=== PATIENT | female | born 1975 | race Caucasian/White ===

== ENCOUNTER 2016-10-16 01:36 | Emergency (ER) | payer BC ==
[~2016-10-16] VITALS: Ht 170.2 cm; Wt 104.3 kg
[~2016-10-16 01:36] MED LIST: ACET-2650 PO; BIOT10TA PO; BSP5T PO; CHOL10003 PO; CHOL2000 PO; CYCL10TA9 PO; CYMBALTA; DULO20CA PO; ESCI20TA2 PO; FLUO40CA12 PO; Flexeril; HYDR1TAB PO; IRON1TAB95 PO; LORA1TAB; METFORMIN; MULT-301 PO; NAPR500T2 PO; OMG1KC PO; ONDA8TAB9 PO; PROP20TA5 PO; QTP25T PO; QUET150T PO; SERT50TA PO; SITA1TAB6 PO; SPIR25TA3 PO; SULF1TAB38 PO; TRAM50TA2 PO; VALE500C PO; VITA1200 SL; VNL75T PO
--- NOTE | 2016-10-16 01:51 | ED EENT ---
History of Present Illness General Stated Complaint: F O IN THROAT Source: patient, RN notes reviewed Exam Limitations: no limitations History of Present Illness Time seen by provider: 01:48 Initial Comments As above and below. Was eating chicken earlier this evening and choked. Since that time she has felt like she has a bone stuck in her throat. Is able to drink water s/ difficulty. Timing/Duration: abrupt Severity: severe (03/07) Location: throat Prearrival Treatment: no prearrival treatment Modifying Factors: Improves With Other (see above) Associated Symptoms: denies symptoms, No drooling Allergies and Home Medications Allergies Coded Allergies: No Known Drug Allergies (Unverified , 12/04/15) Home Medications Acetaminophen 650 Mg Tablet.er, 650 MG PO BID, (Reported) Biotin 10 Mg Tablet, 10 MG PO DAILY, (Reported) Cholecalciferol (Vitamin D3) 1,000 Unit Tablet, 1,000 UNIT PO DAILY, (Reported) Iron,Carbonyl/Vit C/Vit B12/FA 1 Each Tablet, 1 EACH PO DAILY, (Reported) Multivitamin 1 Each Tablet, 1 EACH PO DAILY, (Reported) [place] 3 Polyunsat Fatty Acids 1,000 Mg Cap, 1,000 MG PO DAILY, (Reported) Ondansetron 8 Mg Tab.rapdis, 8 MG PO Q6H PRN for NAUSEA/VOMITING, #10 Prescribed by: RYLAND MORGAN on 12/16/15 1752 Propranolol HCl 20 Mg Tablet, 20 MG PO PRN PRN for ANXIETY, (Reported) Sucralfate 1 Gm/10 Ml Oral.susp, 1 GM PO Q6H PRN for THROAT PAIN for 5 Days, Ref 0 Prescribed by: JUAN C GARDUNO on 10/16/16 0348 Valerian Root 500 Mg Capsule, 500 MG PO HS, (Reported) Review of Systems Constitutional: see HPI Throat: see HPI, pain, painful swallowing Respiratory: No short of breath, No stridor Gastrointestinal: see HPI, No nausea, No vomiting : No All Other Systems Reviewed Negative Unless Noted: Yes (Negative excepted noted.) Past Xlpkuck-Juavzj-Qzgqwk Hx Patient Social History Recent Foreign Travel: No Contact w/Someone Who Travel: No Seasonal Allergies Seasonal Allergies: Yes Surgeries HX Surgeries: Yes (KNEE SCOPE) Surgeries: 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 Respiratory Hx Respiratory Disorders: No Cardiovascular Hx Cardiac Disorders: No Cardiac Disorders: Hypertension Neurological Hx Neurological Disorders: No Reproductive System Hx Reproductive Disorders: No (HYSTERECTOMY) Sexually Transmitted Disease: No HIV/AIDS: 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 Genitourinary Hx Genitourinary Disorders: No Gastrointestinal Hx Gastrointestinal Disorders: No Musculoskeletal Hx Musculoskeletal Disorders: Yes Musculoskeletal Disorders: Chronic Back Pain Endocrine Hx Endocrine Disorders: Yes (OBESITY) Endocrine Disorders: Diabetes, Non-Insulin dep HEENT HX ENT Disorders: No (GLASSES) Loss of Vision: Bilateral Hearing Impairment: Denies Cancer Hx Cancer: No Psychosocial Hx Psychiatric Problems: Yes Behavioral Health Disorders: Anxiety, Depression Integumentary HX Skin/Integumentary Disorder: Yes (LIPOMA LT UPPER ARM, LESION RT UPPER ARM) Blood Transfusions Hx Blood Disorders: No Adverse Reaction to a Blood Tr: No (N/A) Physical Exam Vital Signs Vital Sign - Last 12Hours 10/16/16 01:42 Temp 97.4 Pulse 68 Resp 20 B/P (MAP) 108/90 Pulse Ox 97 O2 Delivery Room Air General Appearance: WD/WN, mild distress, obese, other (anxious) Mouth/Throat: pharynx normal, No excessive drooling Neck: supple, normal inspection Cardiovascular: regular rate, rhythm Respiratory: no respiratory distress Gastrointestinal: soft, other (obese) Neurologic/Psychiatric: no motor/sensory deficits, alert, oriented x 3 Skin: warm/dry Progress/Results/Core Measures Results/Orders My Orders Orders - JUAN C GARDUNO DO Ct Neck (Soft Tissue) Wo (10/16/16 01:51) Lidocaine 2% Viscous 15 Ml (Xylocaine Vi (10/16/16 03:45) Antacid Suspension (Mylanta Suspension (10/16/16 03:45) Ketorolac Injection (Toradol Injection) (10/16/16 04:00) Dexamethasone Pf Injection (Decadron Pf (10/16/16 04:00) Vital Signs/I&O Vital Sign - Last 12Hours 10/16/16 01:42 Temp 97.4 Pulse 68 Resp 20 B/P (MAP) 108/90 Pulse Ox 97 O2 Delivery Room Air Diagnostic Imaging Diagonstic Imaging: CT Plain Films/CT/US/NM/MRI: other (soft tissue neck was negative of any obvious foreign body) Departure Impression Impression: Primary Impression: Esophageal abrasion Disposition: 01 HOME, SELF-CARE Condition: Stable Departure-Patient Inst. Decision time for Depature: 03:44 Referrals: MINGO SWENSON DO (PCP/Family) Primary Care Physician Patient Instructions: Acid Reflux (Gastroesophageal Reflux Disease), Adult (DC) Scripts Sucralfate (Carafate) 1 Gm/10 Ml Oral.susp 1 GM PO Q6H Y for THROAT PAIN for 5 Days, ML 0 Refills Prov: JUAN C GARDUNO DO 10/16/16 JUAN C GARDUNO DO Oct 16, 2016 01:51
[2016-10-16] MEDS ORDERED: ANTACID SUSP 30 ML UDC (MYLANTA) PO ONE (03:45)
[2016-10-16] MEDS ORDERED: LIDOCAINE 2% VISCOUS 15 ML UDC PO ONE (03:45)
[2016-10-16] MEDS ORDERED: SUCR1ORA5 PO (03:48)
[2016-10-16 03:54] VITALS: BP 117/80
[2016-10-16] MEDS ORDERED: DEXAMETHASONE PF 10 MG/ML (DECADRON) VIAL IV ONE (04:00)
[2016-10-16] MEDS ORDERED: KETOROLAC 30 MG/ML VIAL IVP ONE (04:00)
--- NOTE | 2016-10-16 07:19 | Diagnostic Imaging Report ---
PROCEDURE: CT neck soft tissue without contrast. TECHNIQUE: Multiple contiguous axial images were obtained through the neck without the use of intravenous contrast. INDICATION: Choking sensation. Patient is feeling that there is something stuck in the throat. FINDINGS: The mucosal pharyngeal space demonstrates symmetric vocal cords and symmetric mucosa in the pharynx with no radiopaque foreign body identified. There is no lymphadenopathy in the cervical chain on either side. There is symmetric appearance of the parotid and the submandibular glands. The visualized portions of the paranasal sinuses appear generally clear. Degenerative changes in the mid and lower cervical spine are noted. IMPRESSION: No radiopaque foreign body seen. No fluid collection, abscess or lymphadenopathy noted. Dictated by: Dictated on workstation # [id number]
== END 2016-10-16 03:54 | disposition home or self-care (01) ==
LOC: EDUNIT# 01:36 → ER 01:38
DX: S27.818A Other injury of esophagus (thoracic part), initial encounter (principal); I10 Essential (primary) hypertension; E11.9 Type 2 diabetes mellitus without complications; E66.9 Obesity, unspecified; W45.8XXA Other foreign body or object entering through skin, initial encounter; Z79.899 Other long term (current) drug therapy; Y92.009 Unspecified place in unspecified non-institutional (private) residence as the place of occurrence of the external cause; Y99.8 Other external cause status
CPT/HCPCS: 70490; 99282

== ENCOUNTER → 2017-03-08 | Outpatient (CLI) | payer BC ==
[~2017-03-08] MED LIST changes: +SUCR1ORA5 PO
--- NOTE | 2017-03-08 13:20 | Diagnostic Imaging Report ---
Bilateral diagnostic mammogram with tomography evaluation. CAD is utilized. INDICATION Lump in the upper outer aspect of the left breast. COMPARISON: 10/05/2013. FINDINGS: The palpable area is marked at the outer upper aspect of the left breast with no underlying lesion seen. There is background scattered fibroglandular densities seen. On tomography evaluation in the CC projection lateral to the central aspect of the left breast there is a 6-mm asymmetry with suggestion of architectural distortion. This is not confirmed on the MLO projection however. The finding is seen on slice 54 of 82 in the tomographic CC projection views. The right breast demonstrates no evidence of malignancy. IMPRESSION: Indeterminate 6-mm asymmetry with question of architectural distortion only seen on tomography views in the left CC projection lateral to the central aspect of the left breast, tomography image 54/82. Ultrasound evaluation pending. ACR BI-RADS Category 0: Incomplete. (Needs additional imaging evaluation). Result letter will be mailed to the patient. Note: At least 10% of breast cancer is not imaged by mammography. Report was called/stat faxed to office of Dr. Kiera Sandhu @ 1:19 PM/livier. Dictated by: Dictated on workstation # [id number]
--- NOTE | 2017-03-08 13:43 | Diagnostic Imaging Report ---
Left breast ultrasound. INDICATION: Left breast lump. Asymmetry along the outer aspect of the left breast. FINDINGS: The four quadrants and retroareolar region of the left breast were scanned with no underlying abnormality seen. IMPRESSION: Negative study. The asymmetry seen only on the tomography view in the left CC projection is indeterminate. Further evaluation with MRI could be considered. Otherwise a six month followup left breast mammogram is recommended. ACR BI-RADS Category 0: Incomplete. (Needs additional imaging evaluation). Result letter will be mailed to the patient. Note: At least 10% of breast cancer is not imaged by mammography. Dictated by: Dictated on workstation # [id number]
== END ==
LOC: RAD 12:32
PROVIDERS: ATTEND Obstetrics & Gynecology
DX: N63 Unspecified lump in breast (principal)
CPT/HCPCS: 76641; 77066

== ENCOUNTER → 2017-08-30 | Outpatient (CLI) | payer BC ==
[~2017-08-30] MED LIST changes: +NAPR-1073 PO; -NAPR500T2 PO
--- NOTE | 2017-08-30 16:07 | Diagnostic Imaging Report ---
INDICATION: Six-month followup of left breast density. Correlation is made with prior study from 03/08/2017 and 01/31/2016. The current study was also evaluated with a Computer Aided Detection (CAD) system. 3-D CC, ML and MLO views of the left breast were obtained. The area of questionable density and architectural distortion in the outer portion of the left breast on the CC view at mid depth appears stable. No corresponding abnormality on the MLO or ML view is seen. No suspicious calcifications are identified. The axilla is unremarkable. Impression: BI-RADS category 3 Stable left mammogram. Patient should return in 6 months for additional followup to confirm stability. ACR BI-RADS Category 3: Probably benign findings. Result letter will be mailed to the patient. Note: At least 10% of breast cancer is not imaged by mammography. Dictated by: Dictated on workstation # [id number]
== END ==
LOC: RAD 13:58
PROVIDERS: ATTEND Obstetrics & Gynecology
DX: R92.8 Other abnormal and inconclusive findings on diagnostic imaging of breast (principal)

== ENCOUNTER 2018-02-11 09:07 | Emergency (ER) | payer BC ==
[~2018-02-11] VITALS: Ht 170.2 cm; Wt 99.8 kg
--- NOTE | 2018-02-11 09:35 | ED General ---
General Chief Complaint: General Problems/Pain Stated Complaint: REACTION TO MEDICATION Nursing Triage Note: PT AMB TO ROOM #5 W/O DIFFICULTY. A&OX4. CO OF NEW MEDICATION REACTION. PT REPORTS DR. SWENSON PRESCRIBED AMITRIPTYLINE FOR DIFFICULTY SLEEPING. PT TOOK 100MG OF MEDICATION LAST NOC APPROX. 1930 AND WOKE UP THIS MORNING FEELING "LOOPY, DISORIENTED, AND UNABLE TO THINK CLEARLY." DENIES ITCHING, HIVES, CHEST PAIN, OR SOA. Nursing Sepsis Screen: No Definite Risk Source of Information: Patient Exam Limitations: No Limitations History of Present Illness Date Seen by Provider: Feb 11, 2018 Time Seen by Provider: 09:20 Initial Comments Patient presents c/ c/o not feeling right. Basically feels hung over. Started on Amitriptyline last PM for insomnia. Took 100 mg. Previously on Ambien for a week but it didn't help. Timing/Duration: Other (upon waking up this AM.) Severity: Moderate Modifying Factors: improves with Other (none) Associated Systoms: Denies Symptoms Allergies and Home Medications Allergies Coded Allergies: No Known Drug Allergies (Unverified , 12/04/15) Home Medications Acetaminophen 650 Mg Tablet.er, 650 MG PO BID, (Reported) Biotin 10 Mg Tablet, 10 MG PO DAILY, (Reported) Cholecalciferol (Vitamin D3) 1,000 Unit Tablet, 1,000 UNIT PO DAILY, (Reported) Iron,Carbonyl/Vit C/Vit B12/FA 1 Each Tablet, 1 EACH PO DAILY, (Reported) Multivitamin 1 Each Tablet, 1 EACH PO DAILY, (Reported) [place] 3 Polyunsat Fatty Acids 1,000 Mg Cap, 1,000 MG PO DAILY, (Reported) Ondansetron 8 Mg Tab.rapdis, 8 MG PO Q6H PRN for NAUSEA/VOMITING Prescribed by: RYLAND MORGAN on 12/16/15 8592 Propranolol HCl 20 Mg Tablet, 20 MG PO PRN PRN for ANXIETY, (Reported) Sucralfate 1 Gm/10 Ml Oral.susp, 1 GM PO Q6H PRN for THROAT PAIN Prescribed by: JUAN C GARDUNO on 10/16/16 0348 Valerian Root 500 Mg Capsule, 500 MG PO HS, (Reported) Patient Home Medication List Home Medication List Reviewed: Yes Review of Systems Constitutional: see HPI, malaise EENTM: No blurred vision, No double vision, No throat pain Respiratory: No short of breath, No stridor Cardiovascular: No edema, No palpitations, No syncope Gastrointestinal: No diarrhea, No nausea Genitourinary: No hematuria, No pain : No Psychiatric/Neurological: See HPI; Denies Paresthesia, Denies Seizure, Denies Tingling Hematologic/Lymphatic: See HPI; Denies Anemia, Denies Blood Clots, Denies Other Immunological/Allergic: denies see HPI, denies transplant All Other Systems Reviewed Negative Unless Noted: Yes (Negative excepted noted.) Past Hpytpex-Czssfl-Dfpvrm Hx Patient Social History Alcohol Use: Denies Use Recreational Drug Use: No Smoking Status: Never a Smoker 2nd Hand Smoke Exposure: No Recent Foreign Travel: No Contact w/Someone Who Travel: No Recent Infectious Disease Expo: No Recent Hopitalizations: No Physical Abuse: No Sexual Abuse: No Seasonal Allergies Seasonal Allergies: Yes Past Medical History Surgeries: Yes (KNEE SCOPE) 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, Tonsillectomy Respiratory: No Cardiac: No Hypertension Neurological: No Reproductive Disorders: No (HYSTERECTOMY) 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 Sexually Transmitted Disease: No HIV/AIDS: No Gastrointestinal: No Musculoskeletal: Yes Chronic Back Pain Endocrine: Yes (OBESITY) Diabetes, Non-Insulin dep Loss of Vision: Bilateral Hearing Impairment: Denies Cancer: No Psychosocial: Yes Anxiety, Depression Nursing Suicide Risk Score: 0 Integumentary: Yes (LIPOMA LT UPPER ARM, LESION RT UPPER ARM) Blood Disorders: No Adverse Reaction/Blood Tranf: No (N/A) Physical Exam Vital Signs Vital Signs - First Documented 02/11/18 09:07 Temp 98.2 Pulse 96 Resp 16 B/P (MAP) 136/96 (109) Pulse Ox 100 O2 Delivery Room Air Capillary Refill : Less Than 3 Seconds Height, Weight, BMI Height: 5'7.00" Weight: 220lbs. 0.0oz. 99.064988me; 39.77 BMI Method:Stated General Appearance: No Apparent Distress, WD/WN Eyes: Bilateral Eye PERRL HEENT: Normal ENT Inspection Respiratory: No Respiratory Distress Cardiovascular: Regular Rate, Rhythm Rectal: Deferred Neurologic/Psychiatric: Alert, Oriented x3, No Motor/Sensory Deficits, Depressed Affect Skin: Warm/Dry Progress/Results/Core Measures Suspected Sepsis Recent Fever Within 48 Hours: No Infection Criteria Present: None New/Unexplained Altered Menta: No Sepsis Screen: No Definite Risk SIRS Temperature:98.2 Pulse: 96 Respiratory Rate: 16 Blood Pressure 136 /96 Mean: 109 Results/Orders Vital Signs/I&O 02/11/18 09:07 Temp 98.2 Pulse 96 Resp 16 B/P (MAP) 136/96 (109) Pulse Ox 100 O2 Delivery Room Air Capillary Refill : Less Than 3 Seconds Blood Pressure Mean: 109 Departure Impression Primary Impression: Medication adverse effect Additional Impression: Insomnia Disposition: 01 HOME, SELF-CARE Condition: Stable Departure-Patient Inst. Decision time for Depature: 09:31 Referrals: MINGO SWENSON DO (PCP/Family) Primary Care Physician Patient Instructions: Adverse Drug Reactions, Adult (DC), Insomnia (DC) Add. Discharge Instructions: Stop the Amitriptyline. All discharge instructions reviewed with patient and/ or family. Voiced understanding. Work/School Note: Work Release Form Date Seen in the Emergency Department: Feb 11, 2018 Return to Work: Feb 11, 2018 Restrictions: No Restrictions JUAN C GARDUNO DO Feb 11, 2018 09:35
[2018-02-11 09:50] VITALS: BP 109/76
== END 2018-02-11 09:54 | disposition home or self-care (01) ==
LOC: EDUNIT# 09:07 → ER 09:09
DX: R41.0 Disorientation, unspecified (principal); T43.015A Adverse effect of tricyclic antidepressants, initial encounter; G47.00 Insomnia, unspecified; I10 Essential (primary) hypertension; E66.9 Obesity, unspecified; E11.9 Type 2 diabetes mellitus without complications; F41.9 Anxiety disorder, unspecified; F32.9 Major depressive disorder, single episode, unspecified; Z68.34 Body mass index [BMI] 34.0-34.9, adult; Z90.710 Acquired absence of both cervix and uterus; Z90.89 Acquired absence of other organs
CPT/HCPCS: 99281

== ENCOUNTER → 2018-03-28 | Outpatient (CLI) | payer BC ==
--- NOTE | 2018-03-28 18:39 | Diagnostic Imaging Report ---
Indication: Six-month followup of left breast density. Correlation is made with prior mammograms from 08/30/2017, 03/08/2017 and 01/31/2016. Bilateral 2-D and 3-D diagnostic mammography was performed with CAD. Findings: Breast again shows moderate parenchymal heterogeneity and increased density, limiting the sensitivity of mammography. The area of slightly increased density in the central left breast on the CC view just lateral to the nipple line appears stable. No discrete mass is seen. No suspicious calcifications are identified. The right breast is unremarkable. Axillae are unremarkable. Impression: BI-RADS 3 Stable bilateral mammograms. Additional six-month followup of the left breast is recommended to show continued stability. ACR BI-RADS Category 3: Probably benign findings. Result letter will be mailed to the patient. Note: At least 10% of breast cancer is not imaged by mammography. Dictated by: Dictated on workstation # [id number]
== END ==
LOC: RAD 13:53
PROVIDERS: ATTEND Nurse Practitioner Family
DX: R92.2 Inconclusive mammogram (principal)
CPT/HCPCS: 77066

== ENCOUNTER → 2018-09-30 | Outpatient (CLI) | payer BC ==
--- NOTE | 2018-09-30 16:55 | Diagnostic Imaging Report ---
INDICATION: Six-month followup left breast density. COMPARISON: Correlation is made with prior mammograms from 03/28/2018, 08/30/2017 as well as 03/08/2017. EXAMINATION: Unilateral left 2D and 3D diagnostic mammography was performed with CAD. The current study was also evaluated with a Computer Aided Detection (CAD) system. FINDINGS: Scattered fibroglandular densities in the left breast are noted. Parenchymal pattern remains stable. Area of density in the central and slightly outer left breast appears stable. No discrete mass or malignant-appearing microcalcifications are seen. The left axilla is unremarkable. IMPRESSION: Stable left mammogram. Patient should return in six months for bilateral screening mammography. ACR BI-RADS Category 1: Negative. Result letter will be mailed to the patient. Note: At least 10% of breast cancer is not imaged by mammography. Dictated on workstation # [id number]
== END ==
LOC: RAD 14:12
PROVIDERS: ATTEND Family Medicine
DX: R92.2 Inconclusive mammogram (principal)

== ENCOUNTER → 2019-03-17 | Outpatient (CLI) | payer BC ==
--- NOTE | 2019-03-17 17:09 | Diagnostic Imaging Report ---
INDICATION: Follow up left breast density. COMPARISON: Correlation is made with prior mammograms dating back to 2013. TECHNIQUE: 2-D and 3-D bilateral diagnostic mammography was performed. The Current study was also evaluated with a Computer Aided Detection (CAD) system. 3-D tomosynthesis was also performed and reviewed. FINDINGS: Scattered fibroglandular densities are identified. Asymmetric density in the central and slightly outer left breast is stable. No discrete mass or malignant-appearing microcalcifications are seen. The axillae are unremarkable. IMPRESSION: No mammographic features suspicious for malignancy are identified. Patient may return to routine annual screening mammography. ACR BI-RADS Category 1: Negative. Result letter will be mailed to the patient. Note: At least 10% of breast cancer is not imaged by mammography. Dictated by: Dictated on workstation # [id number]
== END ==
LOC: RAD 14:00
PROVIDERS: ATTEND Obstetrics & Gynecology
DX: N60.02 Solitary cyst of left breast (principal); Z87.898 Personal history of other specified conditions
CPT/HCPCS: 77066

== ENCOUNTER → 2020-03-11 | Outpatient (CLI) | payer BC ==
[~2020-03-11] MED LIST changes: -TRAM50TA2 PO; +TRM50T PO
--- NOTE | 2020-03-12 12:46 | Diagnostic Imaging Report ---
INDICATION: Routine screening. Comparison is made with prior mammogram 03/17/2019 and 03/28/2018. 2-D and 3-D bilateral screening mammography was performed with CAD. Scattered fibroglandular densities are identified bilaterally. The parenchymal pattern is stable. No mass or malignant appearing microcalcifications are seen. There are benign calcification. The axillae are unremarkable. IMPRESSION: BI-RADS Category 2 No mammographic features suspicious for malignancy are identified. ACR BI-RADS Category 2: Benign findings. Result letter will be mailed to the patient. Note: At least 10% of breast cancer is not imaged by mammography. Dictated by: Dictated on workstation # [id number]
== END ==
LOC: RAD 15:18
PROVIDERS: ATTEND Family Medicine
DX: Z12.31 Encounter for screening mammogram for malignant neoplasm of breast (principal)
CPT/HCPCS: 77063; 77067

== ENCOUNTER → 2021-03-14 | Outpatient (CLI) | payer BC ==
--- NOTE | 2021-03-14 17:18 | Diagnostic Imaging Report ---
INDICATION: Routine screening. COMPARISON: Prior mammogram from 03/11/2020 and 03/17/2019. EXAMINATION: 2D and 3D bilateral screening mammography was performed with CAD. FINDINGS: Scattered fibroglandular densities are identified, bilaterally. The parenchymal pattern is stable. No mass or malignant-appearing microcalcification is seen. Axillae are unremarkable. IMPRESSION: No mammographic feature suspicious for malignancy is identified. ACR BI-RADS Category 1: Negative. Result letter will be mailed to the patient. Note: At least 10% of breast cancer is not imaged by mammography. Dictated on workstation # [id number]
== END ==
LOC: RAD 14:45
PROVIDERS: ATTEND Family Medicine
DX: Z12.31 Encounter for screening mammogram for malignant neoplasm of breast (principal)
CPT/HCPCS: 77063; 77067

== ENCOUNTER 2021-08-23 11:46 | Emergency (ER) | payer BC ==
[~2021-08-23] VITALS: Ht 170 cm; Wt 102.0 kg
[~2021-08-23 11:46] MED LIST changes: +CYCL10TA25 PO; -CYCL10TA9 PO
[2021-08-23] MEDS ORDERED: KETOROLAC 30 MG/ML VIAL IVP ONE (12:00)
[2021-08-23] MEDS ORDERED: ONDANSETRON 4 MG/2 ML (SDV) Z0FRAN IVP ONE (12:00)
--- NOTE | 2021-08-23 12:10 | ED Headache ---
General Chief Complaint: Head/Cervical Problems Stated Complaint: VOMITING/HANDS SHAKING/DIZZY/RIGHT EYE TWITCHING Source: patient Exam Limitations: no limitations History of Present Illness Date Seen by Provider: Aug 23, 2021 Time Seen by Provider: 12:07 Initial Comments To ER with sudden onset of headache sent to ER from [facility] urgent care with report of headache. This was sudden in onset after working out starting at about 930 this morning. From onset to maximum intensity was about 5 minutes. Currently is rated at 6 out of 10. She is tearful on arrival, reports shaking in both of her hands, right eye twitching. No history of this. She is on Cymbalta for anxiety and depression. No head trauma. No fevers or chills. Timing/Duration: 1-3 hours Severity/Quality: moderate Location: global Prior Headaches/Recent Trauma: occasional headaches Associated Symptoms: nausea/vomiting Allergies and Home Medications Allergies Coded Allergies: No Known Drug Allergies (Unverified , 12/04/15) Patient Home Medication List Home Medication List Reviewed: Yes Acetaminophen (Tylenol Arthritis) 650 Mg Tablet.er, 650 MG PO BID, (Reported) Entered as Reported by: LEFTY ELIZONDO on 12/04/15 135 Biotin (Biotin) 10 Mg Tablet, 10 MG PO DAILY, (Reported) Entered as Reported by: LEFTY ELIZONDO on 12/04/15 135 Cholecalciferol (Vitamin D3) (Vitamin D3) 1,000 Unit Tablet, 1,000 UNIT PO DAILY, (Reported) Entered as Reported by: LEFTY ELIZONDO on 12/04/15 135 Iron,Carbonyl/Vit C/Vit B12/FA (Iron 100 Plus Tablet) 1 Each Tablet, 1 EACH PO DAILY, (Reported) Entered as Reported by: LEFTY ELIZONDO on 12/04/15 135 Multivitamin (Multi-Day Vitamins) 1 Each Tablet, 1 EACH PO DAILY, (Reported) Entered as Reported by: LEFTY ELIZONDO on 12/04/15 135 [place] 3 Polyunsat Fatty Acids (Fish Oil 1,000 mg Capsule) 1,000 Mg Cap, 1,000 MG PO DAILY, (Reported) Entered as Reported by: LEFTY ELIZONDO on 12/04/15 135 Ondansetron (Zofran Odt) 8 Mg Tab.rapdis, 8 MG PO Q6H PRN for NAUSEA/VOMITING Prescribed by: RYLAND MORGAN on 12/16/15 1752 Propranolol HCl (Propranolol HCl) 20 Mg Tablet, 20 MG PO PRN PRN for ANXIETY, (Reported) Entered as Reported by: LEFTY ELIZONDO on 12/04/15 1353 Sucralfate (Carafate) 1 Gm/10 Ml Oral.susp, 1 GM PO Q6H PRN for THROAT PAIN Prescribed by: JUAN C GARDUNO on 10/16/16 0348 Valerian Root (Valerian Root) 500 Mg Capsule, 500 MG PO HS, (Reported) Entered as Reported by: LEFTY ELIZONDO on 12/04/15 1353 Review of Systems Review of Systems Constitutional: see HPI Eyes: No Symptoms Reported Ears, Nose, Mouth, Throat: no symptoms reported Respiratory: no symptoms reported Cardiovascular: no symptoms reported Gastrointestinal: nausea, vomiting Genitourinary: no symptoms reported Musculoskeletal: no symptoms reported Skin: no symptoms reported Psychiatric/Neurological: Headache Past Gpfmdzu-Jlqfir-Tdokne Hx Seasonal Allergies Seasonal Allergies: Yes Past Medical History Surgeries: Yes (KNEE SCOPE) 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, Tonsillectomy Respiratory: No Cardiac: No Hypertension Neurological: No Reproductive Disorders: No (HYSTERECTOMY) 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 0.0oz. 99.316264zu; 39.77 BMI Method:Stated General Appearance: WD/WN, no apparent distress, other (Irritable anxious appearing. Ambulatory to room 6 on her own with normal gait. Very pleasant.) HEENT: PERRL/EOMI, normal ENT inspection, TMs normal Neck: non-tender, full range of motion Cardiovascular: regular rate, rhythm, no murmur Respiratory: no respiratory distress, no accessory muscle use Gastrointestinal: normal bowel sounds, non tender, soft Extremities: normal range of motion Psychiatric: alert, oriented x 3 Crainal Nerves: normal hearing, normal speech, PERRL Motor/Sensory: no motor deficit, no sensory deficit Skin: normal color, warm/dry Progress/Results/Core Measures Results/Orders Lab Results Laboratory Tests Test 08/23/21 12:00 08/23/21 12:41 Range/Units White Blood Count 9.1 4.3-11.0 10^3/uL Red Blood Count 4.82 3.80-5.11 10^6/uL Hemoglobin 13.7 11.5-16.0 g/dL Hematocrit 43 35-52 % Mean Corpuscular Volume 89 80-99 fL Mean Corpuscular Hemoglobin 28 25-34 pg Mean Corpuscular Hemoglobin Concent 32 32-36 g/dL Red Cell Distribution Width 13.2 10.0-14.5 % Platelet Count 311 130-400 10^3/uL Mean Platelet Volume 10.5 9.0-12.2 fL Immature Granulocyte % (Auto) 1 % Neutrophils (%) (Auto) 77 H 42-75 % Lymphocytes (%) (Auto) 16 12-44 % Monocytes (%) (Auto) 4 0-12 % Eosinophils (%) (Auto) 2 0-10 % Basophils (%) (Auto) 1 0-10 % Neutrophils # (Auto) 7.0 1.8-7.8 10^3/uL Lymphocytes # (Auto) 1.4 1.0-4.0 10^3/uL Monocytes # (Auto) 0.3 0.0-1.0 10^3/uL Eosinophils # (Auto) 0.2 0.0-0.3 10^3/uL Basophils # (Auto) 0.1 0.0-0.1 10^3/uL Immature Granulocyte # (Auto) 0.1 0.0-0.1 10^3/uL Prothrombin Time 13.8 12.2-14.7 SEC INR Comment 1.0 0.8-1.4 Activated Partial Thromboplast Time 25 24-35 SEC Sodium Level 139 135-145 MMOL/L Potassium Level 3.9 3.6-5.0 MMOL/L Chloride Level 106 98-107 MMOL/L Carbon Dioxide Level 22 21-32 MMOL/L Anion Gap 11 5-14 MMOL/L Blood Urea Nitrogen 15 7-18 MG/DL Creatinine 0.80 0.60-1.30 MG/DL Estimat Glomerular Filtration Rate 91 BUN/Creatinine Ratio 19 Glucose Level 100 70-105 MG/DL Calcium Level 9.5 8.5-10.1 MG/DL Corrected Calcium 9.3 8.5-10.1 MG/DL Total Bilirubin 0.6 0.1-1.0 MG/DL Aspartate Amino Transf (AST/SGOT) 24 5-34 U/L Alanine Aminotransferase (ALT/SGPT) 26 0-55 U/L Alkaline Phosphatase 51 40-136 U/L Total Protein 7.1 6.4-8.2 GM/DL Albumin 4.3 3.2-4.5 GM/DL Urine Color YELLOW Urine Clarity CLEAR Urine pH 6.5 5-9 Urine Specific [place] 1.025 H 1.016-1.022 Urine Protein NEGATIVE NEGATIVE Urine Glucose (UA) NEGATIVE NEGATIVE Urine Ketones 1+ H NEGATIVE Urine Nitrite NEGATIVE NEGATIVE Urine Bilirubin NEGATIVE NEGATIVE Urine Urobilinogen 0.2 < = 1.0 MG/DL Urine Leukocyte Esterase TRACE H NEGATIVE Urine RBC (Auto) NEGATIVE NEGATIVE Urine RBC RARE /HPF Urine WBC NONE /HPF Urine Squamous Epithelial Cells 0-2 /HPF Urine Crystals NONE /LPF Urine Bacteria NEGATIVE /HPF Urine Casts NONE /LPF Urine Mucus NEGATIVE /LPF Urine Culture Indicated NO My Orders Orders - RYLAND MORGAN APRN Cbc With Automated Diff (08/23/21 11:57) Comprehensive Metabolic Panel (08/23/21 11:57) Protime With Inr (08/23/21 11:57) Partial Thromboplastin Time (08/23/21 11:57) Ed Iv/Invasive Line Start (08/23/21 11:57) Ua Culture If Indicated (08/23/21 11:57) Ct Head Wo (08/23/21 11:57) Ondansetron Injection (Zofran Injectio (08/23/21 12:00) Ketorolac Injection (Toradol Injection) (08/23/21 12:00) Medications Given in ED Current Medications Medications Dose Ordered Sig/Cheko Route Start Time Stop Time Status Last Admin Dose Admin Ketorolac Tromethamine 15 mg ONCE ONCE IVP 08/23/21 12:00 08/23/21 12:04 DC 08/23/21 12:18 15 MG Ondansetron HCl 8 mg ONCE ONCE IVP 08/23/21 12:00 08/23/21 12:04 DC 08/23/21 12:18 8 MG Vital Signs/I&O 08/23/21 08/23/21 11:50 13:05 Temp 36.8 Pulse 81 75 Resp 18 18 B/P (MAP) 137/89 (105) 121/84 Pulse Ox 100 100 Departure Communication (Admissions) NAME: [facility] REC#: [id number] PT STATUS: REG ER : 1975 PHYSICIAN: RYLAND MORGAN APRN ADMIT DATE: 08/23/21/ER Draft Date of Exam:08/23/21 CT HEAD WO PROCEDURE: CT head without contrast. TECHNIQUE: Multiple contiguous axial images were obtained through the brain without the use of intravenous contrast. Auto Exposure Controls were utilized during the CT exam to meet ALARA standards for radiation dose reduction. INDICATION: Sudden onset of exertional headache COMPARISON: 07/16/2015 FINDINGS: Mild atrophy. No intracranial hemorrhage. No intracranial mass, mass effect, midline shift, herniation, hydrocephalus, or extra-axial fluid collection. No CT evidence of an acute ischemic infarction. The orbits are unremarkable. The paranasal sinuses are clear. The calvarium and extracalvarial soft tissues are unremarkable. IMPRESSION: No acute intracranial abnormality with mild atrophy present. Dictated on workstation # [id number] Dict: 08/23/21 1217 Trans: 08/23/21 1220 [facility] [id number] Interpreted by: WAYNE ESPARZA MD Electronically signed by: Impression Primary Impression: Headache Qualified Codes: R51.9 - Headache, unspecified Additional Impression: Nausea & vomiting Disposition: 01 HOME, SELF-CARE Condition: Critical Departure-Patient Inst. Decision time for Depature: 12:45 Referrals: MINGO SWENSON DO (PCP/Family) Primary Care Physician Patient Instructions: HEADACHE, Home Treatments for Nausea and Vomiting When You Have Cancer Add. Discharge Instructions: All discharge instructions reviewed with patient and/or family. Voiced understanding. RYLAND MORGAN APRN Aug 23, 2021 12:10
[2021-08-23 12:20] LABS: BASOPHILS # (AUTO) 0.1 10^3/uL (0.0-0.1); BASOPHILS % (AUTO) 1 % (0-10); EOSINOPHILS # (AUTO) 0.2 10^3/uL (0.0-0.3); EOSINOPHILS % (AUTO) 2 % (0-10); HEMATOCRIT 43 % (35-52); HEMOGLOBIN 13.7 g/dL (11.5-16.0); LYMPHOCYTES # (AUTO) 1.4 10^3/uL (1.0-4.0); LYMPHOCYTES % (AUTO) 16 % (12-44); MEAN CORPUSCULAR HEMOGLOBIN 28 pg (25-34); MEAN CORPUSCULAR HGB CONC 32 g/dL (32-36); MEAN CORPUSCULAR VOLUME 89 fL (80-99); MEAN PLATELET VOLUME 10.5 fL (9.0-12.2); MONOCYTES # (AUTO) 0.3 10^3/uL (0.0-1.0); MONOCYTES % (AUTO) 4 % (0-12); NEUTROPHILS % (AUTO) 77 % (42-75); PLATELET COUNT 311 10^3/uL (130-400); WHITE BLOOD COUNT 9.1 10^3/uL (4.3-11.0)
--- NOTE | 2021-08-23 12:20 | Diagnostic Imaging Report ---
PROCEDURE: CT head without contrast. TECHNIQUE: Multiple contiguous axial images were obtained through the brain without the use of intravenous contrast. Auto Exposure Controls were utilized during the CT exam to meet ALARA standards for radiation dose reduction. INDICATION: Sudden onset of exertional headache COMPARISON: 07/16/2015 FINDINGS: Mild atrophy. No intracranial hemorrhage. No intracranial mass, mass effect, midline shift, herniation, hydrocephalus, or extra-axial fluid collection. No CT evidence of an acute ischemic infarction. The orbits are unremarkable. The paranasal sinuses are clear. The calvarium and extracalvarial soft tissues are unremarkable. IMPRESSION: No acute intracranial abnormality with mild atrophy present. Dictated by: Dictated on workstation # [id number]
[2021-08-23 12:32] LABS: ALBUMIN 4.3 GM/DL (3.2-4.5)
[2021-08-23 12:33] LABS: POTASSIUM 3.9 MMOL/L (3.6-5.0)
[2021-08-23 12:34] LABS: CALCIUM 9.5 MG/DL (8.5-10.1)
[2021-08-23 12:35] LABS: TOTAL PROTEIN 7.1 GM/DL (6.4-8.2)
[2021-08-23 12:37] LABS: BILIRUBIN,TOTAL 0.6 MG/DL (0.1-1.0)
[2021-08-23 12:39] LABS: CREATININE SERUM 0.8 MG/DL (0.60-1.30)
[2021-08-23 12:40] LABS: PROTHROMBIN TIME PATIENT 13.8 SEC (12.2-14.7)
[2021-08-23 12:46] LABS: BILIRUBIN,URINE NEGATIVE (NEGATIVE); CLARITY,URINE CLEAR; COLOR,URINE YELLOW; GLUCOSE, URINE (UA) NEGATIVE (NEGATIVE); KETONES,URINE 1+ (NEGATIVE); LEUKOCYTE ESTERASE ,URINE TRACE (NEGATIVE); NITRITE,URINE NEGATIVE (NEGATIVE); PH,URINE 6.5 (5-9); PROTEIN,URINE NEGATIVE (NEGATIVE)
[2021-08-23 12:51] LABS: BACTERIA,URINE NEGATIVE /HPF; RBC,URINE RARE /HPF; SQUAMOUS EPITHELIAL CELL,UR 0-2 /HPF
[2021-08-23 13:05] VITALS: BP 121/84
== END 2021-08-23 13:05 | disposition home or self-care (01) ==
LOC: EDUNIT# 11:46 → ER 11:49
DX: R11.2 Nausea with vomiting, unspecified (principal); R51.9 Headache, unspecified; F41.9 Anxiety disorder, unspecified; F32.9 Major depressive disorder, single episode, unspecified; Z79.899 Other long term (current) drug therapy
CPT/HCPCS: 36415; 70450; 80053; 81000; 85025; 85610; 85730

== ENCOUNTER → 2022-03-16 | Outpatient (CLI) | payer BC ==
--- NOTE | 2022-03-16 11:25 | Diagnostic Imaging Report ---
Indication: Routine screening. Comparison is made with prior mammogram 03/14/2021 and 03/11/2020. 2-D and 3-D bilateral screening mammography was performed with CAD. CAD is utilized. The current study was also evaluated with a Computer Aided Detection (CAD) system. Scattered fibroglandular densities are identified bilaterally. The parenchymal pattern is stable. No mass or malignant-appearing microcalcifications are seen. Axillae are unremarkable. IMPRESSION: BI-RADS Category 1 No mammographic features suspicious for malignancy are identified. ACR BI-RADS Category 1: Negative. Result letter will be mailed to the patient. Note: At least 10% of breast cancer is not imaged by mammography. Dictated by: Dictated on workstation # [id number]
== END ==
LOC: RAD 08:10
PROVIDERS: ATTEND Family Medicine
DX: Z12.31 Encounter for screening mammogram for malignant neoplasm of breast (principal)
CPT/HCPCS: 77063; 77067

== ENCOUNTER 2022-06-30 07:10 | Emergency (ER) | payer BC ==
[~2022-06-30] VITALS: Ht 170.2 cm; Wt 104.3 kg
--- NOTE | 2022-06-30 08:02 | ED Psychosocial ---
General Chief Complaint: Suicidal Ideation Risk Stated Complaint: TROUBLE SLEEPING | CALLED [facility] Triage Note: PT AMB TO RM 8 WITH COMPLAINT OF TROUBLE SLEEPING. STATES LAST NIGHT SHE PUT A HANDFUL OF PILLS IN HER MOUTH, BUT SPIT THEM ALL OUT AND CALLED [facility]. STATES SHE HAS BEEN STRUGGLING FOR THE LAST MONTH TO FIND A MEDICATION THAT HELPS HER SLEEP OR DOES NOT MAKE THE SYMPTOMS WORSE. STATES CURRENTLY TAKES CYMBALTA FOR ANXIETY/DEPRESSION AND HAD RECENTLY BEEN STARTED ON SERAQUIL AND TRAZADONE BY DR CUMMINGS. STATES ABOUT 10 YEARS AGO HAD SUICIDAL THOUGHTS BUT NEVER ACTED ON THEM. TWO WEEKS AGO SHE WENT TO THE [facility], AND HAD SAFETY PLAN MADE WITH THEM. Source: patient Exam Limitations: no limitations (UMA DE JESUS) History of Present Illness Date Seen by Provider: Jun 30, 2022 Time Seen by Provider: 07:35 Initial Comments This is a 47yo F with pmhx of anxiety and depression who presents for suicide attempt. Pt reports she had trouble sleeping last night and took one pill of her seroquel on [id number] which put her at peace. She subsequently put the rest of her seroquel pills in her mouth but spit them out and called the suicide hotline. Did not ingest any other medications. Patients current medications inlude seroquel and cymbalta. Seroquel is a new medication. In the past month, patient has also been on Lunesta, trazodone, and ativan for management of her trouble sleeping. Dr. Pagan is her PCP. Patient also sees a psychologist in [place]. Pt is currently feeling suicidal, and her plan would be a medication overdose. She is not having any active homicidal ideations. Patient reports she could not sleep for the past 3 days and has been having severe trouble sleeping. She had active suicidal thoughts 10 years ago with no attempt, yesterday was her reported first attempt. Patient reports she also had placement in an inpatient psychiatric facility 10 years ago. Timing/Duration: yesterday Severity: moderate, severe Associated Symptoms: insomnia, suicidal ideation (with attempt) (UMA DE JESUS) Initial Comments Attending documentation: 47-year-old female with history of anxiety and depression presents for depression and difficulty sleeping, suicidal thoughts. She states for the last 3 or 4 days she has had difficulty sleeping. She was recently started on Seroquel and trazodone in an attempt to help with this. She states this has not really helped and she had extreme difficulty sleeping last night. She took a swing Seroquel that made her feel peaceful and then she put the rest of the pills in her mouth thinking she would overdose and kill herself. She spit them out and decided against this and called the suicide hotline who recommended she be evaluated. Notably she did present to [facility] in [place] about 2 weeks ago and developed a safety plan with them for some depressive type symptoms. She states she has had inpatient psychiatric treatment in the past, most recently about 10 years ago. She does see a psychologist in [place] regularly for outpatient therapy. She denies any medical concerns at this time. (MAURICIO THOMPSON DO) Allergies and Home Medications Allergies Coded Allergies: No Known Drug Allergies (Unverified , 12/04/15) Patient Home Medication List Home Medication List Reviewed: Yes (UMA DE JESUS) Acetaminophen (Tylenol Arthritis) 650 Mg Tablet.er, 650 MG PO BID, (Reported) Entered as Reported by: LEFTY ELIZONDO on 12/04/15 135 Biotin (Biotin) 10 Mg Tablet, 10 MG PO DAILY, (Reported) Entered as Reported by: LEFTY ELIZONDO on 12/04/15 135 Cholecalciferol (Vitamin D3) (Vitamin D3) 1,000 Unit Tablet, 1,000 UNIT PO DAILY, (Reported) Entered as Reported by: LEFTY ELIZONDO on 12/04/15 1353 Iron,Carbonyl/Vit C/Vit B12/FA (Iron 100 Plus Tablet) 1 Each Tablet, 1 EACH PO DAILY, (Reported) Entered as Reported by: LEFTY ELIZONDO on 12/04/15 135 Multivitamin (Multi-Day Vitamins) 1 Each Tablet, 1 EACH PO DAILY, (Reported) Entered as Reported by: LEFTY ELIZONDO on 12/04/15 1353 [place] 3 Polyunsat Fatty Acids (Fish Oil 1,000 mg Capsule) 1,000 Mg Cap, 1,000 MG PO DAILY, (Reported) Entered as Reported by: LEFTY ELIZONDO on 12/04/15 135 Ondansetron (Zofran Odt) 8 Mg Tab.rapdis, 8 MG PO Q6H PRN for NAUSEA/VOMITING Prescribed by: RYLAND MORGAN on 12/16/15 175 Propranolol HCl (Propranolol HCl) 20 Mg Tablet, 20 MG PO PRN PRN for ANXIETY, (Reported) Entered as Reported by: LEFTY ELIZONDO on 12/04/15 1353 Sucralfate (Carafate) 1 Gm/10 Ml Oral.susp, 1 GM PO Q6H PRN for THROAT PAIN Prescribed by: JUAN C GARDUNO on 10/16/16 0348 Valerian Root (Valerian Root) 500 Mg Capsule, 500 MG PO HS, (Reported) Entered as Reported by: LEFTY ELIZONDO on 12/04/15 1353 Review of Systems Constitutional: no symptoms reported EENTM: see HPI Respiratory: no symptoms reported Cardiovascular: no symptoms reported Gastrointestinal: no symptoms reported Genitourinary: no symptoms reported Musculoskeletal: no symptoms reported Skin: no symptoms reported Psychiatric/Neurological: Depressed, Other (suidical ideations with attempt by medication ingestion) (UMA DE JESUS) Past Zccwjdj-Vnmwkj-Wvjqny Hx Patient Social History Tobacco Use?: No Use of E-Cig and/or Vaping dev: No Substance use?: No Alcohol Use?: No Pt feels they are or have been: No (UMA DE JESUS) Immunizations Up To Date First/Initial COVID19 Vaccinat: 2020 Second COVID19 Vaccination Abraham: 2020 Third COVID19 Vaccination Date: 2020 (UMA DE JESUS) Seasonal Allergies Seasonal Allergies: Yes (UMA DE JESUS) Past Medical History Surgeries: Yes (KNEE SCOPE) 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, Tonsillectomy Respiratory: No Cardiac: No Hypertension Neurological: No Reproductive Disorders: No (HYSTERECTOMY) [employer] 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 Sexually Transmitted Disease: No HIV/AIDS: No Gastrointestinal: No Musculoskeletal: Yes Chronic Back Pain Endocrine: Yes (OBESITY) Diabetes, Non-Insulin dep Loss of Vision: Bilateral Hearing Impairment: Denies Cancer: No Psychosocial: Yes Anxiety, Depression Integumentary: Yes (LIPOMA LT UPPER ARM, LESION RT UPPER ARM) Blood Disorders: No Adverse Reaction/Blood Tranf: No (N/A) (UMA DE JESUS) Physical Exam Vital Signs - First Documented 06/30/22 07:21 Temp 35.6 Pulse 79 Resp 16 B/P (MAP) 147/103 (118) Pulse Ox 98 O2 Delivery Room Air (JAY,MAURICIO L DO) Capillary Refill : Less Than 3 Seconds (UMA DE JESUS) Height, Weight, BMI Height: 5'7.00" Weight: 220lbs. 0.0oz. 99.334112nu; 36.00 BMI Method:Stated General Appearance: WD/WN, mild distress (depressed and tearful) HEENT: PERRL/EOMI, normal ENT inspection, TMs normal, pharynx normal Neck: non-tender, full range of motion, supple, normal inspection Respiratory: chest non-tender, lungs clear, normal breath sounds, no respiratory distress, no accessory muscle use Cardiovascular: normal peripheral pulses, regular rate, rhythm, no edema, no murmur Gastrointestinal: normal bowel sounds, non tender, soft, no organomegaly, no pulsatile mass Extremities: normal range of motion, non-tender, normal inspection, no pedal edema, no calf tenderness, normal capillary refill Neurologic/Psychiatric: no motor/sensory deficits, alert, oriented x 3, depressed affect Appearance/Memory: appropriate appearance, no memory impairment Behavior/Eye Contact: cooperative, good eye contact Thoughts/Hallucinations: normal thought pattern, no apparent hallucination Skin: normal color, warm/dry Lymphatic: no adenopathy (UMA DE JESUS) Progress/Results/Core Measures Results/Orders Lab Results Laboratory Tests Test 06/30/22 07:56 06/30/22 08:09 Range/Units (JAY,MAURICIO L DO) My Orders Orders - JAY,MAURICIO L DO Ua Culture If Indicated (06/30/22 07:45) Cbc With Automated Diff (06/30/22 07:45) Comprehensive Metabolic Panel (06/30/22 07:45) Alcohol (06/30/22 07:45) Drug Screen Stat (Urine) (06/30/22 07:45) Acetaminophen (06/30/22 07:45) Salicylate (06/30/22 07:45) Ekg Tracing (06/30/22 07:45) Bh Status Checks/Observation O Q15M (06/30/22 07:45) (JAY,MAURICIO L DO) Vital Signs/I&O 06/30/22 07:21 Temp 35.6 Pulse 79 Resp 16 B/P (MAP) 147/103 (118) Pulse Ox 98 O2 Delivery Room Air (MAURICIO THOMPSON DO) Blood Pressure Mean: 118 Progress Progress Note #1: Time: 11:52 Progress Note Care of this patient was transitioned to mo at midmorning at shift change. Patient has been medically cleared and has no complaints at this time. Behavioral health screening is pending. Plan was communicated to the patient. Progress Note #2: Time: 14:16 Progress Note Patient has been screened by [facility]. The screener and patient agree that admission is the best option. They are presently working on placement. Patient is stable at this time. (GIOVANY HOLLINGSWORTH MD) Comment Sinus rhythm with a rate of 79 bpm. Normal intervals. Normal axis. No ST or T wave abnormalities. No ectopy. No STEMI. (MAURICIO THOMPSON DO) Departure Impression Primary Impression: Depression Qualified Codes: F33.9 - Major depressive disorder, recurrent, unspecified Disposition: 65 XFER TO PSYCH HOSP/UNIT Condition: Stable Transfer Transfer Reason: Exceeds level of care Time Spoke to Accepting Phy: 16:39 Transfer Progress Notes Transfer facilitated by [facility] to accepting physician Dr. Chappell. Transfer Time: 17:28 Transfer Facility: [facility] Method of Transfer: [facility] (GIOVANY HOLLINGSWORTH MD) Departure-Patient Inst. Referrals: MINGO PAGAN DO (PCP/Family) Primary Care Physician Patient Instructions: OUTPT MENTAL HEALTH SERVICES UMA DE JESUS Jun 30, 2022 08:02 MAURICIO THOMPSON DO Jun 30, 2022 08:17 GIOVANY HOLLINGSWORTH MD Jun 30, 2022 11:53
[2022-06-30 08:19] LABS: BASOPHILS % (AUTO) 0 % (0-10); EOSINOPHILS # (AUTO) 0.1 10^3/uL (0.0-0.3); EOSINOPHILS % (AUTO) 1 % (0-10); HEMATOCRIT 44 % (35-52); HEMOGLOBIN 14.2 g/dL (11.5-16.0); LYMPHOCYTES # (AUTO) 1.5 10^3/uL (1.0-4.0); LYMPHOCYTES % (AUTO) 18 % (12-44); MEAN CORPUSCULAR HEMOGLOBIN 30 pg (25-34); MEAN CORPUSCULAR HGB CONC 33 g/dL (32-36); MEAN CORPUSCULAR VOLUME 90 fL (80-99); MEAN PLATELET VOLUME 9.8 fL (9.0-12.2); MONOCYTES # (AUTO) 0.4 10^3/uL (0.0-1.0); MONOCYTES % (AUTO) 4 % (0-12); NEUTROPHILS # (AUTO) 6.4 10^3/uL (1.8-7.8); NEUTROPHILS % (AUTO) 76 % (42-75); PLATELET COUNT 319 10^3/uL (130-400); WHITE BLOOD COUNT 8.4 10^3/uL (4.3-11.0)
[2022-06-30 08:20] LABS: BILIRUBIN,URINE NEGATIVE (NEGATIVE); CLARITY,URINE CLEAR; COLOR,URINE YELLOW; GLUCOSE, URINE (UA) NEGATIVE (NEGATIVE); KETONES,URINE NEGATIVE (NEGATIVE); LEUKOCYTE ESTERASE ,URINE NEGATIVE (NEGATIVE); NITRITE,URINE NEGATIVE (NEGATIVE); PROTEIN,URINE NEGATIVE (NEGATIVE)
[2022-06-30 08:28] LABS: ALBUMIN 4.1 GM/DL (3.2-4.5); AMPHETAMINE SCREEN, URINE NEGATIVE (NEGATIVE); BARBITURATE SCREEN URINE NEGATIVE (NEGATIVE); BENZODIAZEPINES SCREEN URINE NEGATIVE (NEGATIVE); CANNABINOID SCREEN, URINE NEGATIVE (NEGATIVE); CHLORIDE 105 MMOL/L (98-107); COCAINE SCREEN URINE NEGATIVE (NEGATIVE); METHADONE STAT NEGATIVE (NEGATIVE); OPIATE SCREEN URINE NEGATIVE (NEGATIVE); OXYCODONE STAT NEGATIVE (NEGATIVE); PROPOXYPHENE STAT NEGATIVE (NEGATIVE); SODIUM 139 MMOL/L (135-145); TRICYCLIC ANTIDEPRESSANTS SCRE POSITIVE (NEGATIVE)
[2022-06-30 08:30] LABS: CALCIUM 9.3 MG/DL (8.5-10.1)
[2022-06-30 08:31] LABS: BACTERIA,URINE NEGATIVE /HPF; SQUAMOUS EPITHELIAL CELL,UR RARE /HPF
[2022-06-30 08:31] LABS: GLUCOSE 110 MG/DL (70-105); TOTAL PROTEIN 6.9 GM/DL (6.4-8.2)
[2022-06-30 08:32] LABS: BILIRUBIN,TOTAL 0.6 MG/DL (0.1-1.0); CARBON DIOXIDE 25 MMOL/L (21-32)
[2022-06-30 08:35] LABS: ALKALINE PHOSPHATASE 49 U/L (40-136); GFR ESTIMATED 78
[2022-06-30 08:36] LABS: BUN/CREATININE RATIO 21
[2022-06-30 08:37] LABS: SALICYLATE < 5.0 MG/DL (5.0-20.0)
[2022-06-30 08:38] LABS: ALANINE AMINOTRANSFERASE 15 U/L (0-55)
[2022-06-30 09:15] LABS: ACETAMINOPHEN < 10 UG/ML (10-30)
[2022-06-30 17:28] VITALS: BP 135/86
== END 2022-06-30 17:28 ==
LOC: EDUNIT# 07:10 → ER 07:13
DX: F32.A Depression, unspecified (principal); G47.00 Insomnia, unspecified; E66.9 Obesity, unspecified; Z68.36 Body mass index [BMI] 36.0-36.9, adult
CPT/HCPCS: 80053; 80306; 81000; 85025; 87636; 93005; 99283; G0480 ×3; 36415; 80320; 80329

== ENCOUNTER → 2023-04-19 | Outpatient (CLI) | payer BC ==
--- NOTE | 2023-04-19 11:06 | Diagnostic Imaging Report ---
INDICATION: Routine screening. COMPARISON: 03/16/2022 and 03/14/2021. TECHNIQUE: 2D and 3D bilateral screening mammography was performed with CAD. FINDINGS: Scattered fibroglandular densities are identified bilaterally. The parenchymal pattern is stable. No mass or malignant-appearing microcalcifications are seen. The axillae are unremarkable. IMPRESSION: No mammographic features suspicious for malignancy are identified. ACR BI-RADS Category 1: Negative. Result letter will be mailed to the patient. Note: At least 10% of breast cancer is not imaged by mammography. Dictated by: Dictated on workstation # [id number]
== END ==
LOC: RAD 08:09
PROVIDERS: ATTEND Nurse Practitioner Family
DX: Z12.31 Encounter for screening mammogram for malignant neoplasm of breast (principal)
CPT/HCPCS: 77063; 77067